=== PATIENT | male | born 1990 | race Caucasian/White ===

== ENCOUNTER 2017-04-13 09:26 | Emergency (ER) | payer OTHER ==
[~2017-04-13] VITALS: Ht 185.4 cm; Wt 104.5 kg
[~2017-04-13 09:26] MED LIST: CYCL10TA9 PO; IBUP800T28 PO; [UNRECOGNIZED DRUG - CODE] PO
--- NOTE | 2017-04-13 09:29 | ED.REPORT ---
HPI-Hand Prob/Inj Date of Service Apr 13, 2017 ED Provider: Rosalinda Martin Patient is a healthy 26 year old male who presents to the ED complaining of a L hand injury onset just prior to arrival while at work. A nail gun double fired, resulting in a nail through his L hand. He reports that his hand has started to feel cold. He denies fevers, numbness, or any other symptoms. Patient is R handed. Nursing Notes Stated Complaint: NAIL THROUGH HAND/LNI Chief Complaint: Extremity Trauma Nursing Notes Reviewed: Yes Allergies: Coded Allergies: No Known Allergies (Unverified , 05/21/15) Scheduled PRN Cyclobenzaprine (Cyclobenzaprine) 10 Mg Tablet 10 MG PO TID PRN PRN For Spasm Hydrocodone/Acetaminophen (Lortab 5-325 mg Tablet) 1 Each Tablet 1 EACH PO Q8H PRN PRN PRN Ibuprofen (Ibuprofen) 800 Mg Tablet 800 MG PO TID PRN PRN For Pain Ibuprofen (Ibuprofen) 800 Mg Tablet 800 MG PO TID PRN PRN For Pain oxyCODONE-Acetaminophen 5-325 mg (oxyCODONE-Acetaminophen 5-325 mg) 1 Each Tablet 1 TAB PO Q6H PRN PRN For Pain General Time Seen by Provider: 09:29 Chief Complaint Hand injury left Hx Obtained From: Patient Arrived By: Walk-in Onset Occurred: Just prior to arrival Context of Onset: Workplace Symptom Duration: Since onset Immunizations: Tetanus not up to date Past Medical History Past Medical History Healthy Past Surgical History R thumb Smoking History Former Smoker Social History Alcohol Use: "Social" Ambulatory Status Independent Review of Systems Constitutional: Denies: Fever Musculoskeletal: Reports: Extremity pain (L hand injury ) Neurologic: Denies: Numbness Complete sys rev & neg: except as marked. Physical Exam Initial Vital Signs Vital Signs (First) Date Time Temp Pulse Resp B/P Pulse Ox O2 Delivery O2 Flow Rate FiO2 04/13/17 09:33 37.2 104 15 162/82 97 Room Air Initial VS: Reviewed General/Constitutional: Well-developed, Well-nourished Head / Eyes: Atraumatic, Normocephalic Neck: Full range of motion Respiratory: Breath sounds normal, Clear to auscultation, No respiratory distress Cardiovascular: Intact distal pulses Skin: Warm, Dry Neurologic: Alert, Oriented, Nonfocal Psychiatric: Mood/affect normal, Behavior normal, Normal thought content Wrist / Hand: Neurologic intact, Vascular intact Nail through the hypothenar and thenar eminence of the L hand. Head of the nail is embedded in the hypothenar. Pt is R handed. Interpretation & Diagnostics X-Ray Interpretation Xray Interpretation: IMPRESSION: 1. No acute osseous normality. 2. Small radiopaque densities (foreign bodies) between the thumb and index finger. Please correlate clinically. (Dr Martin: the foreign bodies noted on exam are bits of the plastic from the nail taped to the palm for radiographic refrence) Dictated by: Wili Chavis M.D. on 04/13/2017 at 10:13 Approved by: Wili Chavis M.D. on 04/13/2017 at 10:14 Study Performed: L hand, 2 views X-Ray Ordered: Hand left Interpretation / Wet Read by: Interpret - Radiologist Procedures Digital Nerve Block Digital Nerve Block Note: Nail through the hypothenar and thenar eminence of the L hand. Nail was then pulled from the hand. Time: 09:35 Procedure Performed by: ED physician Consent / Setup / Site Prep: Informed consent provided, Consent from patient , Time-out performed, Hand hygiene observed Skin Preparation Agent: Hibiclens - Chlorhexidine Digital Block Procedure: Two digital nerve block, Lidocaine 1% Post-Procedure / Complications: No complications, Condition improved, Tolerated procedure well, Patient stable Re-Eval/Medical Decision Re-Evaluation/Progress : Time of Eval: 10:46 Re-Evaluation/Progress Note: Discussed x-ray results and plan for discharge. Patient understands and agrees with plan. All questions addressed at this time. Counseled Regarding: Diagnosis, Need for follow-up, When/why to return to ED Discharge & Departure Primary Impression: Accident at workplace Additional Impression: Foreign body in hand Encounter type: initial encounter Laterality: left Qualified Code: S60.552A - Superficial foreign body of left hand, initial encounter Disposition: Home Discharge Condition All VS Reviewed: Yes Condition: Improved Additional Instructions: Thank you for entrusting us with your care. Your visit today included X-ray, evaluation, and foreign body removal. Take Ibuprofen as needed for pain and one Percocet every 6 hours as needed for severe pain. Do not drive, drink alcohol, or take acetaminophen while taking Percocet. We did not place stitches today so that any drainage or infection may exit freely. Follow up with your primary care doctor at the end of this week to ensure you are healing well. Return to the emergency department if you experience fever, redness, more difficulty moving fingers, increasing pain, or any other new or concerning symptoms. Referrals: NOPCP (PCP) Scribe Attestation Portions of this note were transcribed by Karan Manzanares. I, Dr. Martin personally performed the history, physical exam and medical decision-making; I reviewed and confirmed the accuracy of the information in the transcribed note. Signed by: Karan Manzanares 04/13/17, 1056 Rosalinda Martin MD Apr 13, 2017 09:29 KARAN MANZANARES Apr 13, 2017 09:38
[2017-04-13 09:33] VITALS: BP 162/82; PULSE 104; RESP 15; O2SAT 97
[2017-04-13] MEDS ORDERED: oxyCODONE-Acetamin 5-325 mg Tablet PO ONE (09:55)
[2017-04-13] MEDS ORDERED: TdaP Vaccine 0.5 mL Inj IM ONE (09:55)
--- NOTE | 2017-04-13 10:16 | DRSVH ---
PROCEDURE: X-RAY LEFT HAND, TWO VIEWS ([id number]) INDICATIONS: framing nail removed TECHNIQUE: 2 views of the hand(s) acquired. COMPARISON: None. FINDINGS: Bones: No fractures or dislocations. Carpal bones are normally aligned. No suspicious bony lesions . No acute fracture or dislocation is identified involving the osseous structures of the left hand. No suspicious osseous lesions are present. Soft tissues: Small square and rectangular radiopaque densities are identified between the thumb and index finger with associated soft tissue air. Borderline edema is present. IMPRESSION: 1. No acute osseous normality. 2. Small radiopaque densities (foreign bodies) between the thumb and index finger. Please correlate clinically. Dictated by: Wili Chavis M.D. on 04/13/2017 at 10:13 Approved by: Wili Chavis M.D. on 04/13/2017 at 10:14
[2017-04-13] MEDS ORDERED: IBUP800T28 PO (10:51)
[2017-04-13] MEDS ORDERED: OXYC1TAB24 PO (10:51)
[2017-04-13 11:22] VITALS: BP 139/80; PULSE 90; RESP 16; O2SAT 96
== END 2017-04-13 11:18 | disposition home or self-care (01) ==
LOC: SED 09:26
DX: S61.442A Puncture wound with foreign body of left hand, initial encounter (principal); W29.4XXA Contact with nail gun, initial encounter; Y92.59 Other trade areas as the place of occurrence of the external cause; Y93.89 Activity, other specified; Y99.0 Civilian activity done for income or pay; Z23 Encounter for immunization; Z87.891 Personal history of nicotine dependence